=== PATIENT | female | born 1965 | race Caucasian/White ===

== ENCOUNTER 2023-11-18 16:04 | Emergency (ER) | payer SELFPAY ==
[2023-11-18 16:10] VITALS: BP 157/81
[2023-11-18] MEDS: ZOFRAN 4 MG IV (16:26)
[2023-11-18] MEDS: DILAUDID 0.5 MG IV (16:26)
[2023-11-18] MEDS: NSS 1000 IV (16:27)
[2023-11-18 16:34] LABS: % Basophils 0.3 % (0-2); % Eosinophils 0.4 % (0-6); % Immature Granulocytes 0.4 % (0-0.5); % Lymphocytes 15.5 % (20.5-51.1); % Monocytes 5.5 % (1.7-9.3); % Neutrophils 77.9 % (42.2-75.2); Absolute Lymphocytes 1.5 10^3/uL (1.2-3.4); Absolute Monocytes 0.5 10^3/uL (0.1-0.6); Absolute Neutrophils 7.3 10^3/uL (1.4-6.5); Hematocrit 40.7 % (37.0-47.0); Hemoglobin 13.9 g/dL (12.0-16.0); Mean Corp Hgb Conc. 34.2 g/dL (33.0-37.0); Mean Corpuscular Hgb 28.1 pg (27.0-31.0); Mean Corpuscular Volume 82.2 fL (81.0-99.0); Mean Platelet Volume 11.4 fL (7.4-10.4); Nucleated Red Blood Cells % 0 %; Platelet Count 196 10^3/uL (130-400); Red Blood Cell Count 4.95 10^6/uL (4.20-5.40); Red Cell Dist. Width 12.4 % (11.5-14.5); White Blood Cell Count 9.4 10^3/uL (4.8-10.8)
[2023-11-18 16:37] LABS: Urine Albumin Trace (Neg - Trace); Urine Bilirubin Negative (Negative); Urine Character Clear (Clear); Urine Color Yellow; Urine Glucose Negative (Negative); Urine Ketone 3+ (Negative); Urine Leukocyte Trace (Negative); Urine Nitrite Negative (Negative); Urine Occult Blood 3+ (Negative); Urine Specific Gravity 1.025 (<1.030); Urine Urobilinogen Negative (Neg - 1+)
--- NOTE | 2023-11-18 16:37 | EDRN ---
Pt is a 57yo female with hx of kidney stones, gallbladder attacks, and vaginal infections, c/o severe R flank pain, vaginal pain, lower abd/pelvic pain, and rectal pain. States the pain started in her vagina and then spread to other areas. Denies
hematuria. Reports several episodes of vomiting prior to arrival. Appears to be in severe pain.
[2023-11-18 16:44] LABS: ALT (SGPT) 46 U/L (0-35); AST (SGOT) 45 U/L (14-36); Alkaline Phosphatase 110 U/L (38-126); Blood Urea Nitrogen 21 mg/dl (7-17); Calcium 9.9 mg/dl (8.4-10.2); Carbon Dioxide 20 mmol/L (22-30); Chloride 105 mmol/L (98-107); Glucose 161 mg/dl (70-99); Lipase 79 U/L (23-300); Sodium 136 mmol/L (135-145); Total Bilirubin 0.8 mg/dl (0.2-1.3); eGFR > 60.00
[2023-11-18 16:51] LABS: Urine Calcium Oxalate Crystals Present; Urine Red Blood Cell 21-25 /HPF (0-2)
[2023-11-18] MEDS: TORADOL 15 MG IV (17:00)
[2023-11-18] MEDS: FLOMAX 0.400000000000000022 MG PO (17:00)
[2023-11-18] MEDS: TYLENOL 650 MG PO (18:07)
[2023-11-18] MEDS: DILAUDID 0.25 MG IV (18:08)
--- NOTE | 2023-11-18 18:58 | ED.GENMED ---
History of Present Illness
General
Chief Complaint: Flank Pain
Source: patient
Exam Limitations: none
Time Seen by Provider: 11/18/23 16:15
Nursing documentation reviewed up to this point in time: agreed with
Travel History
Have you had any contact with someone who has COVID-19?: No
Do you have any symptoms of coronavirus? Fever > 100 degrees, chills, cough, shortness of breath, sore throat, loss of taste or smell, muscle aches, or headache?: No
History of Present Illness
History of Present Illness:
pt is a57 y/o F with h/o remote kidney stone
does not have insurance
taking care of her daughter
here with severe vaginal pain radiating to right flank that started a few hours ago
had 2 episodes vomiting
feels prressure in lower abdomen
no dysuria, hematuria, diarrhea, constipation
last bm earleier
does not see a urologist
Past History
Past History
ED Past Medical History: Other
Social History
Tobacco: Non-smoker
Review of Systems
Review of Systems
Allergies reviewed?: Yes
All Other Systems: Not applicable
Phy Exam
Physical Exam
Physical Exam:
GENERAL: Alert, uncomfortable
Neck: supple
CARDIAC: Regular rate and rhythm .
LUNGS: Clear breath sounds bilaterally, no acute respiratory distress, no wheezes/rales/rhonchi
ABDOMEN: Soft, normal bowel sounds, nondistended, mild RLQ tenderness, no guarding, no rebound, neg villa's
: normal external inspection
NEUROLOGICAL: Alert and oriented, no focal neuro deficits
SKIN: Warm and dry, skin intact.
PSYCH: Normal and appropriate interaction.
Course
Orders/Labs/Results
Orders:
Orders
11/18/23 16:20
CT Abd/pel Without Iv Or Oral Urgent
Comment:
Reason For Exam: right vag pain radiating to right flank
0.9% Sodium Chloride 1000 ml [Nss] 1,000 ml IV BOLUS
HYDROmorphone [Dilaudid] 0.5 mg IV NOW STA
Ondansetron Injectable [Zofran] 4 mg IV NOW STA
11/18/23 16:22
Complete Blood Count/With Diff Urgent
Comprehensive Metabolic Panel Urgent
Lipase Urgent
11/18/23 16:31
Urinalysis Reflex To Culture Urgent
Date Specimen was Collected: 11/18/23
Time Specimen was Collected: 16:30
Urine Microscopic Reflex Cult Urgent
11/18/23 16:56
Ketorolac [Toradol] 15 mg IV NOW STA
Tamsulosin [Flomax] 0.4 mg PO NOW STA
11/18/23 17:54
Acetaminophen [Tylenol] 650 mg PO NOW STA
HYDROmorphone [Dilaudid] 0.25 mg IV NOW STA
Abnormal Lab Results
11/18/23 11/18/23
16:22 16:31
MPV 11.4 H fL
(7.4-10.4)
Absolute Neuts (auto) 7.3 H 10^3/uL
(1.4-6.5)
Neutrophils % 77.9 H %
(42.2-75.2)
Lymphocytes % 15.5 L %
(20.5-51.1)
Carbon Dioxide 20 L mmol/L
(22-30)
BUN 21 H mg/dl
(7-17)
Glucose 161 H mg/dl
(70-99)
AST 45 H U/L
(14-36)
ALT 46 H U/L
(0-35)
Urine Ketones 3+ A
(Negative)
Ur Occult Blood Reflex 3+ A
(Negative)
Leukocyte Esterase Rfl Trace A
(Negative)
Urine RBC 21-25 A /HPF
(0-2)
11/18/23 16:22
11/18/23 16:22
Vital Signs
Initial and Last Documented VS:
Initial Vital Signs
Temp Pulse Resp Pulse Ox
98.6 F 85 18 100
11/18/23 16:06 11/18/23 16:06 11/18/23 16:06 11/18/23 16:06
Last Documented Vital Signs
Temp Pulse Resp BP Pulse Ox
98.6 F 80 16 140/79 100
11/18/23 16:06 11/18/23 19:00 11/18/23 19:00 11/18/23 19:47 11/18/23 16:06
MDM/Problems Addressed
Differential Diagnosis Includes:
kidney stone, appe
MDM/Problems Addressed:
57 y/o F with h/o kidney stone remotely
here with vaginal pressure and right flank pain with n/v
sounds c/w kidney stone
no fever/chills/dysuria
pt moaning in pain intiailly
given dilaudid, zofran and pt felt better
labs show normal wbc
ua not c/w infection but hematura
cr 1.0
ct shows distal R UVJ stone with mod hydro
she intiially had pain relief but pain returned
given a 2nd dose of dilaudid
pt having some nausea probably related to the dilaudid
hope to be able to discharge her
after vomiting, pt feels better
pain 3/10
she wishes to go home for trial of passage
flomax daily, tylenol 3 time adya and as needed oxycodone
i gave her good rx coupons
free clinic number
uro f/u.
*Critical Care Note
Total Time (30-74mins, 75-104mins- exclusive of procedures): Not Applicable
ED Attending Note
-
Portions of this chart may have been created with voice recognition software.� Occasional wrong word or��sound alike� substitutions may have occurred due to the inherent limitations of voice recognition software.
Discharge Plan
Departure
Patient Disposition: Home (Routine Discharge)
Date of Disposition: 11/18/23
Time of Disposition: 19:42
Patient with high blood pressure during this ER visit?: No
Condition: Fair
Discharge Problem:
Kidney stone
Instructions: Kidney Stones (DC)
Prescriptions:
New
tamsulosin [Flomax] 0.4 mg capsule
0.4 mg PO DAILY Qty: 7 0RF
oxycodone 5 mg tablet
5 mg PO Q8H PRN (Reason: Pain) Qty: 10 0RF
ondansetron 4 mg tablet,disintegrating
4 mg PO TIDPRN PRN (Reason: nausea/vomiting) Qty: 10 0RF
Referrals:
[facility] - Follow up in 5-7 days
NONE,* [Family Provider] -
Jesus Arias MD [Active] - Follow up in 5-7 days (urologist)
Activity Restrictions/Additional Instructions:
YOU HAVE A SMALL 3 MM KIDNEY STONE LOW IN YOUR RIGHT URETER NEAR YOUR BLADDER
EACH TIME YOU PEE, PEE THROUGH THE STRAINER SO YOU CAN SEE WHEN YOU PASS IT
TAKE TYLENOL 3 TIME S ADAY FOR PAIN
IF PAIN SEVERE, TAKE OXYCODONE 5 MG EVERY 8H OURS NEEDED (THIS IS STRONG, NO ALCOHOL OR DRIVING ON THIS MEDICATION)
TAKE FLOMAX O.4 MG ONCE A DAY STARTING SATURDAY UNTIL YOU PASS THE STONE. STOP IT WHEN YOU PASS IT
DRINK FLUIDS
IF YOU ARE NAUSEATED YOU CAN TRY ZOFRAN 4 MG EVERY 8 HOURS NEEDED
FOLLOW UP WITH THE UROLOGIST OR THE FREE CLIN[facility]
IF YOU GET MORE PAIN, FEVER, VOMITING, ETC RETURN IMMEDIATELY
Interventions
Interventions:
*Risk Screen - Suicide Last Done: 11/18/23 16:09
*General Assessment Last Done: 11/18/23 16:09
*Neglect/Abuse Screening Last Done: 11/18/23 16:09
*ED COVID-19 Vaccine History Last Done: 11/18/23 16:19
*Nursing Disposition Last Done: 11/18/23 19:47
MA-Zivwma-Fixxghdgce Assessment Last Done: 11/18/23 16:19
ED-Female Genitourinary Assessment Last Done: 11/18/23 16:19
ED-Musculoskeletal Assessment Last Done: 11/18/23 16:20
Discharge Date and Time
Discharge Date/Time: 11/18/23 19:48
[2023-11-18 19:00] VITALS: BP 140/79
[2023-11-18 19:47] VITALS: BP 140/79
== END 2023-11-18 19:48 | disposition home or self-care (01) ==
LOC: EMR 16:04
PROVIDERS: Physician Assistant; EMERGENCY PHYSICIAN Emergency Medicine
DX: N13.2 Hydronephrosis with renal and ureteral calculous obstruction (principal)
CPT/HCPCS: 99284; 96374; 96375 ×2; 96361; 96376; 74176; 80053; 81003; 81015; 83690; 85025

== ENCOUNTER → 2025-10-13 08:57 | Outpatient (REF) | payer OTHER, SELFPAY ==
[2025-10-13 09:58] LABS: Hematocrit 40.1 % (37.0-47.0); Hemoglobin 13.5 g/dL (12.0-16.0); Mean Corp Hgb Conc. 33.7 g/dL (33.0-37.0); Mean Corpuscular Volume 82.3 fL (81.0-99.0); Nucleated Red Blood Cells % 0 %; Platelet Count 200 10^3/uL (130-400); Red Cell Dist. Width 12.4 % (11.5-14.5)
[2025-10-13 11:26] LABS: ALT (SGPT) 35 U/L (0-35); AST (SGOT) 32 U/L (14-36); Albumin 4.7 g/dl (3.5-5.0); Alkaline Phosphatase 77 U/L (38-126); Blood Urea Nitrogen 16 mg/dl (7-17); Calcium 9.3 mg/dl (8.4-10.2); Carbon Dioxide 25 mmol/L (22-30); Chloride 105 mmol/L (98-107); Glucose 97 mg/dl (70-99); HDL Cholesterol 47 mg/dl; LDL Cholesterol, Calculated 151 mg/dl; Potassium 4.1 mmol/L (3.5-5.1); Sodium 139 mmol/L (135-145); Total Protein 7.4 g/dl (6.3-8.2); Very Low Density Lipoprotein 17 mg/dl (0-30); eGFR > 60.00
[2025-10-13 11:37] LABS: TSH 1.49 uIU/ml (0.47-4.68)
== END ==
LOC: REG 08:57
PROVIDERS: ATTENDING PHYSICIAN Physician Assistant Medical
DX: Z76.89 Persons encountering health services in other specified circumstances (principal); Z00.00 Encounter for general adult medical examination without abnormal findings
CPT/HCPCS: 36415; 80053; 80061; 84443; 85025

== ENCOUNTER → 2025-10-23 08:23 | Outpatient (REF) | payer OTHER, SELFPAY | LOC: RAD 08:23 | PROVIDERS: ATTENDING PHYSICIAN Physician Assistant Medical | DX: N20.0 Calculus of kidney (principal); Z76.89 Persons encountering health services in other specified circumstances; Z00.00 Encounter for general adult medical examination without abnormal findings | CPT/HCPCS: 74176 ==